=== PATIENT | female | born 1965 | race Caucasian/White ===

== ENCOUNTER → 2018-07-28 | Outpatient (CLI) | payer OTHER ==
--- NOTE | 2018-07-28 12:47 | CT ---
EXAMINATION TYPE: CT abdomen pelvis wo con DATE OF EXAM: 07/28/2018 COMPARISON: None HISTORY: Uteteral stone'kidney stone CT DLP: 419.60 mGycm Automated exposure control for dose reduction was used. TECHNIQUE: Helical acquisition of images was performed from the lung bases through the pelvis. FINDINGS: LUNG BASES: Linear subpleural 2 mm density lateral margin right lower lobe likely postinflammatory. LIVER/GB: Postcholecystectomy changes noted.. PANCREAS: No significant abnormality is seen. SPLEEN: Accessory spleen noted. ADRENALS: No significant abnormality is seen. KIDNEYS: There is mild left hydronephrosis. There is mild perinephric edema. There is a renal pelvic calcification measuring approximately 1.2 cm. ADENOPATHY: None visualized. OSSEOUS STRUCTURES: Hypertrophic and degenerative changes of the vertebral column. BOWEL: Bowel gas pattern nonspecific. Retained fecal debris seen throughout the colon. Correlate for constipation. OTHER: Aorta of normal caliber. No free fluid. IMPRESSION: MILD LEFT HYDRONEPHROSIS SECONDARY TO A 1.2 CM LEFT UPJ CALCIFICATION.
== END | disposition home or self-care (01) ==
LOC: RADCTMAIN 12:04
PROVIDERS: ATTEND Urology
DX: N13.30 Unspecified hydronephrosis (principal); N28.89 Other specified disorders of kidney and ureter
CPT/HCPCS: 74176

== ENCOUNTER 2019-11-09 05:45 | Day surgery (SDC) | payer BC, OTHER ==
[2019-11-06 08:38] VITALS: BMI 27.8
[2019-11-09] MEDS ORDERED: NITROGLYCERIN SL TABS 0.4 MG TAB SUBLINGUAL PRN ×2 (06:38→08:08)
[2019-11-09] MEDS ORDERED: ASPIRIN 325 MG TAB PO STA (06:38)
[2019-11-09] MEDS ORDERED: ALPRAZolam 0.5 MG TAB PO PRN (06:38)
[2019-11-09] MEDS ORDERED: SODIUM CHLORIDE 0.9% 1,000 ML in EMPTY BAG 1 BAG IV ONE (06:38)
[2019-11-09] MEDS ORDERED: ALPRAZolam 0.25 MG TAB PO PRN (06:38)
[2019-11-09 07:03] VITALS: RESP 16; TEMP 98
[2019-11-09] MEDS ORDERED: VERAPAMIL 2.5 MG/ML 2 ML AMP ONE (07:15)
[2019-11-09] MEDS ORDERED: LIDOCAINE 1% INJ 10MG/ML (20 ML MDV) ONE (07:16)
[2019-11-09] MEDS ORDERED: fentaNYL (PF) 50 MCG/ML 2 ML AMP ONE (07:34)
[2019-11-09] MEDS ORDERED: HEPARIN SODIUM 1,000 UN/ML (10ML VL) ONE (07:34)
[2019-11-09] MEDS ORDERED: fentaNYL (PF) 50 MCG/ML 2 ML AMP IV ONE (07:36)
[2019-11-09] MEDS ORDERED: LIDOCAINE 1% INJ 10MG/ML (20 ML MDV) SQ ONE (07:40)
[2019-11-09] MEDS ORDERED: MIDAZOLAM 2 MG/2 ML VIAL IV ONE (07:42)
[2019-11-09] MEDS ORDERED: VERAPAMIL SYRINGE (5 MG/10 ML) INTRAARTER ONE (07:42)
[2019-11-09] MEDS: VERAPAMIL SYRINGE (5 MG/10 ML) INTRAARTER ONE ×2 (07:43→07:52)
[2019-11-09] MEDS ORDERED: HEPARIN SODIUM 1,000 UN/ML (10ML VL) IV ONE (07:51)
[2019-11-09] MEDS ORDERED: IOPAMIDOL-370 125ML BTL INJ ONE (07:52)
[2019-11-09] MEDS ORDERED: RX INFO: IV CONTRAST WAS GIVEN 1 EACH MISC MISCELLANE PRN (08:07)
[2019-11-09] MEDS ORDERED: HYDROcodone/APAP 7.5-325MG 1 EACH TAB PO PRN (08:08)
[2019-11-09] MEDS ORDERED: SODIUM CHLORIDE 0.9% 1,000 ML IV SCH (08:15)
[2019-11-09] MEDS ORDERED: NON FORMULARY DRUG (Aspirin [Adult Low Dose Aspirin Ec] 81 MG) PO SCH (09:00)
[2019-11-09] MEDS ORDERED: METOPROLOL TARTRATE 25 MG TAB PO SCH (09:00)
[2019-11-09] MEDS ORDERED: NON FORMULARY DRUG (Rosuvastatin 20 MG) PO SCH (09:00)
--- NOTE | 2019-11-09 11:09 | CC ---
CARDIAC CATHETERIZATION REPORT Mrs. Sanchez is a 53-year-old female known history of coronary artery disease status post stenting of the LAD in 2016, history of hyperlipidemia, who has been complaining of progressive dyspnea, underwent a myocardial perfusion imaging that revealed evidence of apical ischemia. In view of that, recommendation made regarding cardiac catheterization. The procedures, risks and complications were discussed with the patient who is in full understanding and agreement. PROCEDURE IN DETAIL: Patient was brought to the lab scientist in a fasting state after receiving fentanyl Benadryl and achieving moderate conscious sedated state. Using Xylocaine anesthesia, and Seldinger technique, a 6-Spanish sheath was introduced in the right radial artery. Selective right and left coronary angiography performed using 5-Spanish 3 and half bend right and left Radames catheter. Multiple views of the coronary artery including hemiaxial views obtained. Following that, 5-Spanish tight pigtail catheter was introduced in the left ventricle and pressures were calculated. Following that, catheter and sheath were removed. Hemostasis was obtained with deployment of TR band. There was no immediate complication. Patient was returned to her room in stable condition. Of note, the patient received 4000 units of intravenous heparin as well as intraarterial verapamil. FINDINGS: LEFT MAIN: This is a short size vessel bifurcating into left circumflex, left anterior descending artery. Left main coronary artery has no evidence of high-grade stenosis. LEFT ANTERIOR DESCENDING ARTERY: This is a moderately-sized vessel giving rise to 2 diagonal branches. The vessel tapers down in distal third. The stented segment in the mid area is patent with no evidence of in-stent restenosis. LEFT CIRCUMFLEX: This is a large dominant vessel bifurcating distally into PDA and posterolateral segment and branches giving rise to 2 obtuse marginal branches large in caliber. The left circumflex as well as branches have no evidence of obstructive coronary artery disease. RIGHT CORONARY ARTERY: This is a small nondominant vessel giving rise to an acute marginal branch. The right coronary artery in the proximal segment prior to the takeoff of the acute marginal branch has a 50% plaque. The rest of the vessel has intimal disease without any evidence of high-grade stenosis. LEFT VENTRICULOGRAM: Left ventriculogram was not performed. HEMODYNAMICS: There was no gradient across the aortic valve. The left ventricular end-diastolic pressure was 20 mmHg. CONCLUSION: 1. No evidence of restenosis in the LAD/stented. 2. Mild to moderate disease in the small nondominant right coronary artery. RECOMMENDATION: In view of findings and anatomy, I have recommended continued medical therapy with aggressive coronary risk modifications that have been initiated. Those findings and recommendations were discussed with the patient and her family who are in full understanding and agreement. Duration of procedure is 20 minutes. JAZMYNE / FLETCHER: [id number] /
--- NOTE | 2019-11-09 11:14 | LTR ---
DATE OF SERVICE: 11/09/[address] An: I had the pleasure of performing cardiac catheterization on Mrs. Sanchez at [facility] on November 09 and a full copy of procedure note will be forwarded to you. In brief, she was found to have mild to moderate disease in a small nondominant right coronary artery with no evidence of in-stent restenosis of the LAD and based on those findings, I recommend continued medical therapy with the aggressive coronary risk modifications that have been initiated. Thank you again for allowing me to participate in her care. Please feel free to call for any questions. Sincerely yours, MMODL / IJN: [id number] /
[2019-11-09 13:11] VITALS: BP 115/72; PULSE 76
[2019-11-09] MEDS ORDERED: LORazepam 1 MG TAB PO SCH (21:00)
== END 2019-11-09 13:00 | disposition home or self-care (01) ==
LOC: CATHCVL 05:45
PROVIDERS: ATTEND Internal Medicine Interventional Cardiology
DX: I25.10 Atherosclerotic heart disease of native coronary artery without angina pectoris (principal); E78.5 Hyperlipidemia, unspecified; Z95.5 Presence of coronary angioplasty implant and graft
CPT/HCPCS: 93458; C1769; C1894; J2250; J2001; J3010; J1644; Q9967